=== PATIENT | female | born 1960 | race Caucasian/White ===

== ENCOUNTER 2018-12-18 04:13 | Observation (INO) | payer BC ==
[~2018-12-18] VITALS: Ht 154.9 cm; Wt 123.7 kg
--- NOTE | ~2018-12-18 | OP ---
PATIENT NAME: DEVON LONGO MEDICAL RECORD: [id number] :58 LOCATION:[facility]- ADMISSION DATE:12/18/18 SURGEON: BEN AHN MD DATE OF OPERATION: 12/18/2018 PROCEDURE: Left heart catheterization, selective coronary angiography, right femoral artery approach as well as right radial approach due to inability. We initially started with radial; however, due to inability to engage left main, we were forced to go to femoral. FINDINGS: Left ventriculography was not performed. Left heart pressures; however, showed normal left heart pressures, there was no pullback across the aortic valve, LVEDP of 20. CORONARY ANATOMY: LEFT MAIN: Left main is free of disease. LAD: Has a long diffuse proximal stenosis about 80%. This extends to pass the first diagonal. CIRCUMFLEX: Minimal luminal irregularities. RIGHT CORONARY ARTERY: Again minimal luminal irregularities. IMPRESSION: Single-vessel disease involving left anterior descending. PLAN: Intervention momentarily. DESCRIPTION OF PROCEDURE: We engaged the right femoral artery with a JL4 guiding catheter easily. This was followed by 300 cm Whisper wire, which was placed across the tightly occluded diffusely diseased LAD down this portion of this vessel. Stent deployed was a 3.0 x 30 mm Jose drug-eluting stent up to 14 atmospheres for 45 seconds. Final angiography shows excellent resolution of diffuse 80% stenosis, no significant residual. NINO flow was 3 throughout the procedure. Integrilin and heparin were used during the case. Plavix was loaded in the lab. TRANSINT:[id number] Voice Confirmation ID: [id number] DOCUMENT ID: [id number] BEN AHN MD CC: [id number] DICTATION DATE: 12/18/18 1518 SUPERINTENDENT HOUSE: 12/18/18 1530 ADM IN [place] [id number] [place] [address]
--- NOTE | ~2018-12-18 | HEMODYNAMI ---
PATIENT:DEVON LONGO MEDICAL RECORD: [id number] : 58 LOCATION:[facility]# [id number] ADMISSION DATE: 12/18/18 Generatedon:12/18/201815:22 Patient name: DEVON LONGO Patient #: [id number] SSN: D OB: 1960 Date of study: 12/18/2018 Page: Of Hemodynamic Procedure Report Patient Data Patient Demographics Procedure consent was obtained First Name: DEVON Gender: Female Last Name: QING : 1960 Patient #: [id number] Age: 58 year(s) Race: Unknown Additional ID: [id number] Contact details Address: [address] [place] [address] rd State: [place] City: [place] Zip code: [address] Past Medical History Allergies Allergen Reaction Date Comments Reported Other allergy 12/18/2018 N Admission Admission Data Admission Date: 12/18/2018 Admission Time: 6:29 Room #: D.E12 Height (in.): 60.63 BSA: 2.13 (m2) Height (cm.): 154 BMI: 51.44 (kg/m2) Weight (lbs.): 268.97 Weight (kg.): 122 Lab Results Lab Result Date: 12/18/2018 Lab Result Time: 0:00 Biochemistry Name Units Result Min Max BUN mg/dl 13 --(--*-)-- 7 18 Creatinine mg/dl 1 --(--*-)-- 0.6 1.3 CBC Name Units Result Min Max Hemoglobin g/dl 13.4 -*(----)-- 13.5 17.5 Procedure Procedure Types Cath Procedure Diagnostic Procedure LHC Coronaries only PCI Procedure Coronary Stent Coronary Stent Initial Procedure Description Procedure Date Procedure Date: 12/18/2018 Procedure Start Time: 14:38 Procedure End Time: 15:13 Procedure Staff Name Function Víctor Mitchell MD Performing Physician Jenni Soto RN Nurse Ysabel Pennington RT Scrub Joel Chaudhry RT Monitor Procedure Data Cath Procedure Fluoroscopy Diagnostic fluoroscopy Total fluoroscopy Time: time: 10.2 min 10.2 min Diagnostic fluoroscopy Total fluoroscopy dose: dose: 2115 mGy 2115 mGy Contrast Material Contrast Material Type Amount (ml) Isovue 300 139 Entry Location Entry Primary Successful Side Size Upsize Upsize Entry Closure Richards ccessful Closure Location (Fr) 1 (Fr) 2 (Fr) Remarks Device Remarks Radial Right 6 Fr Mechanical artery Short Compression Femoral Right 6 Fr Exoseal artery Short Estimated blood loss: 10 ml Diagnostic catheters Device Type Used For End Catheter Placement DIAGNOSTIC Ribera 110cm 5 Procedure Fr catheter ([id number]) DIAGNOSTIC Pigtail 5Fr Procedure catheter ([id number]) Procedure Complications No complications Procedure Medications Medication Administration Route Dosage Oxygen etCO2 Nasal cannula 2 l/min Lidocaine 2% added to field 20 Heparin Flush Bag added to field 2 bags (1000units/500ml NS) 0.9% NaCl I.V. 100 ml/hr Radial Cocktail added to field 1 syringe (Verapomil 2mg/Nitro 400mcg/Heparin 1500units) Versed I.V. 2 mg Fentanyl I.V. 50 mcg Versed I.V. 1 mg Fentanyl I.V. 50 mcg Versed I.V. 1 mg Fentanyl I.V. 50 mcg Heparin Bolus I.V. 5000 units Integrilin (Bolus 11.3 ml 2mg/ml) Atropine I.V. 1 mg Versed I.V. 1 mg Plavix P.O. 600 mg Hemodynamics Rest BSA: 2.13 (m2) O2 Consumption: Estimated: 202.65 (ml/min) O2 Consumption indexed : Estimated:95.14 (ml/min/m) Heart Rate: 70 (bpm) Pressure Samples Time Site Value (mmHg) Purpose Heart Use Rate(bpm) 14:41 AO 155/94(120) Snapshot 67 Snapshots Pre Cath Intra NCS Post Cath Vital Signs Time Heart Resp SPO2 etCO2 NIBP (mmHg) Rhythm Pain Sedation Rate (ipm) (%) (mmHg) Status Level (bpm) 14:29:19 69 16 89 17.8 151/82(118) NSR 0 (11) 10(A) , No pain 14:33:31 68 15 93 12.6 152/88(103) NSR 0 (11) 10(A) , No pain 14:37:47 68 14 93 32.6 164/76(105) NSR 0 (11) 9(A) , No pain 14:42:07 70 18 95 32.6 143/78(112) NSR 0 (11) 9(A) , No pain 14:46:19 71 15 95 23.7 156/82(110) NSR 0 (11) 9(A) , No pain 14:51:22 51 15 96 26.6 137/67(91) NSR 0 (11) 9(A) , No pain 14:55:32 87 25 95 32.6 121/67(85) NSR 0 (11) 9(A) , No pain 14:59:38 84 41 92 28.9 131/73(101) NSR 0 (11) 9(A) , No pain 15:03:48 77 14 90 31.1 121/72(104) NSR 0 (11) 10(A) , No pain 15:07:52 74 16 92 31.1 131/76(93) NSR 0 (11) 10(A) , No pain 15:12:01 74 15 93 33.3 137/72(94) NSR 0 (11) 10(A) , No pain Medications Time Medication Route Dose Verified Delivered Reason Not es Effectiveness by by 14:26:51 Oxygen etCO2 2 l/min Víctor Arteaga used for Nasal St Jagdish Soto RN procedure cannula 14:27:00 Lidocaine 2% added 20ml Víctor Renee for local to vial [facility] anesthetic field MD ARROYO 14:27:07 Heparin Flush added 2 bags Víctor Arteaga used for Bag to St Jagdish Soto RN procedure (1000units/500ml field ARROYO NS) 14:27:36 0.9% NaCl I.V. 100 Víctor Arteaga Per physician ml/hr St Jagdish Soto RN, MD 14:29:28 Versed I.V. 2 mg Víctor Francisie for sedation St Jagdish Soto RN, MD 14:29:34 Fentanyl I.V. 50 mcg Víctor Francisie for sedation St Jagdish Soto RN, MD 14:33:26 Versed I.V. 1 mg Víctor Francisie for sedation St Jagdish Soto RN, MD 14:33:31 Fentanyl I.V. 50 mcg Víctor Arteaga for sedation St Jagdish Soto RN, MD 14:39:18 Radial Cocktail added 1 Víctor Víctor for (Verapomil to syringe St Jagdish Mitchell vasodilation 2mg/Nitro field MD ARROYO 400mcg/Heparin 1500units) 14:40:58 Versed I.V. 1 mg Víctor Buffie for sedation St Jagdish Soto RN, MD 14:47:32 Heparin Bolus I.V. 5000 Víctor Buffie for lela ified units St Jagdish Soto RN anticoagulation with dr MD leiva 14:48:40 Integrilin 11.3 ml Víctor Buffie Per physician was jessica (Bolus 2mg/ml) St Jagdish Soto RN 8.7 ml MD of vial 14:51:29 Atropine I.V. 1 mg Víctor Arteaga For bradycardia St Jagdish Soto RN, MD 14:54:44 Fentanyl I.V. 50 mcg Víctor Francisie for sedation St Jagdish Soto RN, MD 14:54:51 Versed I.V. 1 mg Víctor Francisie for sedation St Jagdish Soto RN, MD 15:15:43 Plavix P.O. 600 mg Víctor Buffie for St Jagdish Soto RN antiplatelet therapy Procedure Log Time Note 13:50:02 Jenni Soto RN sent for patient. Start room use. 14:00:30 Patient Height : 60.63 inches 14:00:34 Patient Weight : 268.97 lbs 14:01:12 Lab Result : Hemoglobin 13.4 g/dl 14:01:12 Lab Result : Creatinine 1 mg/dl 14:01:12 Lab Result : BUN 13 mg/dl 14:02:01 Diagnostic Cath status Elective 14:02:04 Time tracking: Regular hours (M-F 7:00 - 5:00) 14:02:10 Plan of Care:Hemodynamics will remain stable., Cardiac rhythm will remain stable., Comfort level will be maintained., Respiratory function will remain adequate., Patient/ family verbilizes understanding of procedure., Procedure tolerated without complication., Recovers from procedure without complications.. 14:02:16 Patient received from ED to CCL 2 Alert and oriented. Tansferred to table in Supine position. 14:15:20 Warm blankets applied, and marcelo hugger turned on for patient comfort. 14:15:22 Correct patient and procedure confirmed by team. 14:15:23 Signed procedure consent form obtained from patient. 14:15:25 ECG and BP/O2 sat monitors applied to patient. 14:15:34 H&P Date Dictated: 12/18/2018 Emergent; H&P N/A. 14:15:36 Pre-procedure instructions explained to patient. 14:15:40 Family in waiting room. 14:15:42 Patient NPO since Breakfast. 14:16:07 Patient allergic to Other allergyPCN 14:26:23 Was the patient premedicated? Yes 14:26:24 Is patient on blood thinner?No 14:26:26 Patient diabetic? No. 14:26:31 Snore? Unknown 14:26:32 Sleep apnea? No 14:26:46 Dentures? Yes tight 14::51 Oxygen 2 l/min etCO2 Nasal cannula was administered by Jenni Soto RN; used for procedure; 14:: Patient pain scale 0/10 ?. 14:26:57 IV patent on arrival in right forearm with 0.9% NaCl at [facility]. 14:27:00 Lidocaine 2% 20ml vial added to field was administered by Víctor Mitchell MD; for local anesthetic; 14:27:00 Lab results completed and on chart. 14:27:04 Right Radial & Right Groin area was prepped with chlora-prep and draped in sterile fashion 14:27: Alarms reviewed by R. N. 14:27: Sharps counted by scrub and verified by R.N. 14:27: Heparin Flush Bag (1000units/500ml NS) 2 bags added to field was administered by Jenni Soto RN; used for procedure; 14:: Physician paged 14:: Physician arrived 14::09 --------ALL STOP TIME OUT------ 14:: Final Timeout: patient, procedure, and site verified with staff and physician. All members of the team are in agreement. 14:27:11 Right Radial & Right Groin site verified by team. 14:27:15 Maximum allowable Isovue 300 dose 300ml. Physician notified. (300ml for normal creatinines. For patients with creatinine of 1.7 or higher multiply weight(kg) x 5 divided by creatinine.) 14:27:21 Fire Safety Assessment: A--An alcohol-based skin anteseptic being used preoperatively., C--Open oxygen or nitrous oxide is being used., D--An ESU, laser, or fiber-optic light is being used. 14:27:26 Physical assessment completed. ASA score P 2 - A patient with mild systemic disease as per Víctor Mitchell MD. 14::31 Sedation plan: IV Moderate Sedation Medication:Versed, Fentanyl 14::34 Use device set Radial Dx or PCI 14::36 0.9% NaCl 100 ml/hr I.V. was administered by Jenni Soto RN; Per physician; 14:27:36 ACIST Syringe (80330) opened to sterile field. 14::36 Medline Cath Pack ([id number]) opened to sterile field. 14:27:36 Bag Decanter (2002S) opened to sterile field. 14:27:38 ACIST Hand Control (54983) opened to sterile field. 14:27:38 ACIST Manifold (12676) opened to sterile field. 14:27:40 MBrace Wrist Support ([id number]) opened to sterile field. 14:27:42 SHEATH 6FR Slender (52-5339) opened to sterile field. 14:28:08 Vital chart was started 14:29:28 Versed 2 mg I.V. was administered by Jenni Soto RN; for sedation; 14::34 Fentanyl 50 mcg I.V. was administered by Jenni Soto RN; for sedation; 14::44 Patt Castillo RT(R) was relieved by Joel Chaudhry RT(R) as monitoring person 14:31:44 Correct patient and procedure confirmed by team. 14:32:03 Rhythm: sinus rhythm 14:32:05 Full Disclosure recording started 14:32:27 DIAGNOSTIC WIRE .035 260cm J wire (891156) opened to sterile field. 14:33:26 Versed 1 mg I.V. was administered by Jenni Soto RN; for sedation; 14:33:31 Fentanyl 50 mcg I.V. was administered by Jenni Soto RN; for sedation; 14:37:54 Procedure started. 14:38:01 Local anesthetic to right radial artery with Lidocaine 2% by Víctor Mitchell MD.INITIAL ACCESS ONLY 14:39:18 Radial Cocktail (Verapomil 2mg/Nitro 400mcg/Heparin 1500units) 1 syringe added to field was administered by Víctor Mitchell MD; for vasodilation; 14:39:51 A 6 Fr Short sheath was inserted into the Right Radial artery 14:40:01 A DIAGNOSTIC Ribera 110cm 5 Fr catheter (585495) was advanced over the wire and used for Procedure. 14:40:51 Baseline sample Acquired. 14:40:58 Versed 1 mg I.V. was administered by Jenni Soto RN; for sedation; 14:41:11 RCA angiography performed. 14:42:08 LCA angiography performed. 14:43:26 Catheter exchanged over wire. 14:44:07 Use device set JIMY PCI 14:44:34 A DIAGNOSTIC Pigtail 5Fr catheter (145791P) was advanced over the wire and used for Procedure. 14:45:18 GUIDE 6FR XBLAD 3.5 catheter ([id number]) opened to sterile field. 14:45:21 INFLATOR Merit BasixCompak (SE2719) opened to sterile field. 14:45:37 WHISPER 300cm guide wire ([id number]) opened to sterile field. 14:47:32 Heparin Bolus 5000 units I.V. was administered by Jenni Soto RN; for anticoagulation; verified with dr leiva 14:47:40 Unable to cross valve. 14:47:46 Catheter exchanged over wire. 14:48:14 6 Fr XBLAD 3.5 guide catheter was inserted over the wire 14:48:40 Integrilin (Bolus 2mg/ml) 11.3 ml was administered by Jenni Soto RN; Per physician; wasted 8.7 ml of vial 14:51:29 Atropine 1 mg I.V. was administered by Jenni Soto RN; For bradycardia; 14:52:02 Guide Catheter removed. unable to cannulate vessel. 14:52:04 GUIDE 6FR XBLAD 4.0 catheter ([id number]) opened to sterile field. 14:52:33 6 Fr XBLAD 4 guide catheter was inserted over the wire 14:54:44 Fentanyl 50 mcg I.V. was administered by Jenin Soto RN; for sedation; 14:54:50 Guide catheter removed. 14:54:51 Versed 1 mg I.V. was administered by Jenni Soto RN; for sedation; 14:55:12 PATIENT WILL NOT KEEP ARM STILL. WILL PROCEED FEMORAL 14:56:10 TR BAND Standard ([id number]) opened to sterile field. 14:56:48 Local anesthetic to right femoral artery with Lidocaine 2% by Víctor Mitchell MD.ADDITIONAL ACCESS 14:57:08 A 6 Fr Short sheath was inserted into the Right Femoral artery 14:57:59 GUIDE 6FR JL 4.0 SH catheter ([id number]) opened to sterile field. 14:58:10 6 Fr JL4 SH guide catheter was inserted over the wire 14:59:13 SHEATH 6FR [place] (DLQ078) opened to sterile field. 15:00:03 Whisper wire advanced. 15:02:15 Wire advanced across lesion. 15:05:10 Place stent Inflation Number: 1 A DANIEL OTW 3.0 x 34 stent ([id number]) was prepped and advanced across the Prox LAD. The stent was deployed at 14 DEJAN for 0:30 (min:sec). 15:05:33 Stent catheter was removed intact over wire. 15:05:34 Wire removed. 15:05:34 Guide catheter removed. 15:06:22 EXOSEAL 6Fr (EX600) opened to sterile field. 15:06:42 Sheath removed intact; hemostasis achieved with Exoseal to the Right Femoral artery. 15:06:58 Procedure ended.(Physican Out) 15:07:55 Fluoroscopy time 10.20 minutes. 15:08:01 Fluoroscopy dose: 2115 mGy 15:08:01 Flurop Dose total: 2115 15:08:23 Contrast amount:Isovue 300 139ml. 15:08:24 Sharps counted by scrub and verified by R.N. 15:08:43 Sheath removed intact; hemostasis achieved with Mechanical Compression to the Right Radial artery. 15:08:47 TR band inflated with 12cc of air. 15:09:02 Insertion/operative site no bleeding no hematoma. 15:09:06 Post-op/insertion site Right Femoral artery dressed using a 4 x 4 and Tegaderm. 15:09:07 Post Procedure Pulses reassessed and unchanged 15:09:13 Post-procedure physical assessment completed. ASA score P 2 - A patient with mild systemic disease as per Víctor Mitchell MD. 15:09:15 Post procedure rhythm: unchanged. 15:09:18 Estimated blood loss: 10 ml 15:10:49 Post procedure instruction explained to patient.Patient verbalizes understanding. 15:10:49 Patient needs reinforcement of post procedure teaching. 15:11:04 Procedure type changed to Cath procedure, Diagnostic procedure, LHC, Coronaries only, PCI procedure, Coronary Stent, Coronary Stent Initial 15:12:58 Procedure and supply charges have been captured, reviewed, submitted and are correct. 15:13:01 Procedure Complication : No complications 15:13:06 Vital chart was stopped 15:13:06 See physician's report for complete and final results. 15:13:08 Report given to Pre/Post Procedure Room. 15:13:12 Patient transfered to Pre/Post Procedure Room with Stretcher. 15:13:14 Procedure ended. 15:13:14 Full Disclosure recording stopped 15:15:43 Plavix 600 mg P.O. was administered by Jenni Soto RN; for antiplatelet therapy; 15:21:56 End room use (Document Last) Intervention Summary Intervention Notes Time ActionType Lesion and Equipment Action# Pressure Duration Attributes Used 15:05:[address] stent Prox LAD DANIEL OTW 3.0 1 14 00:30 x 34 stent ([id number]) Device Usage Item Name Manufacture Quantity Catalog Hospital Part Current Mini mal Lot# / Number Charge Number Stock Stock Serial# Code ACIST Syringe Acist 1 89400 799426 374317 286902 20 (07555) Medical Systems Inc Medline Cath Medline 1 [id number] 498107 34201 224965 5 Pack ([id number]) Bag Decanter Microtek 1 2001S 338664 63451 389595 5 (2001S) Medical Inc. ACIST Hand Acist 1 26180 644783 779070 347537 5 Control Medical (46499) Systems Inc ACIST Acist 1 70091 074167 067110 504399 5 Manifold Medical (79697) Systems Inc MBrace Wrist Advanced 1 140-0250-00 602993 65432 811413 5 Support Vascular (870604241) Dynamics SHEATH 6FR Terumo 1 [id number] 670904 080246 236567 5 Slender (80-1060) DIAGNOSTIC St Jun 1 069944 143876 339173 288906 30 WIRE .035 260cm J wire (423215) DIAGNOSTIC Terumo 1 50-0905 313891 572194 226277 5 Ribera 110cm 5 Fr catheter (406660) DIAGNOSTIC Cardinal 1 [id number] 875855 604064 932745 5 Pigtail 5Fr Health catheter (446363N) GUIDE 6FR Cardinal 1 40060352 594524 430361 271124 10 XBLAD 3.5 Health catheter (03772726) INFLATOR Merit 1 [id number] 856512 362228 727012 15 [facility] BasixCompak (OD4536) WHISPER 300cm Reaves 1 [id number] 209134 606492 533988 5 guide wire Vascular (8390620UH) GUIDE 6FR Cardinal 1 [id number] 060054 774120 891202 3 XBLAD 4.0 Health catheter (80749369) TR BAND Terumo 1 [id number] 241863 777540 583285 40 Standard ([id number]) GUIDE 6FR JL Medtronic 1 [id number] 851083 67826 869314 1 4.0 SH catheter ([id number]) SHEATH 6FR Terumo 1 KMW388 755174 534723 183174 40 [place] (VKG205) DANIEL OTW 3.0 Medtronic 1 [id number] 683509 2706284 826053 5 [id number] x 34 stent ([id number]) EXOSEAL 6Fr Cardinal 1 EX600 427449 549329 866491 10 (EX600) Health Signature Audit [place] Stage Time Signature Unsigned Intra-Procedure 12/18/2018 Joel Chaudhry 3:22:19 PM RT(R) Signatures Monitor : Joel Chaudhry RT Signature : Date : Time : [address] [address]
[2018-12-18] MEDS ORDERED: LISINOPRIL40 MG PO (04:21)
[2018-12-18] MEDS ORDERED: SYNTHROID100 MCG PO (04:21)
[2018-12-18] MEDS ORDERED: LIPITOR20 MG (04:21)
[2018-12-18] MEDS ORDERED: ALDACTONE25 MG PO (04:22)
[2018-12-18] MEDS ORDERED: CLARITIN 10 MG10 MG PO (04:22)
[2018-12-18] MEDS ORDERED: BYSTOLIC10 MG PO (04:22)
[2018-12-18] MEDS ORDERED: FLONASE (04:22)
[2018-12-18 04:47] VITALS: BP 195/110
[2018-12-18 05:15] VITALS: BP 197/107
[2018-12-18 05:27] LABS: APTT 29.8 SECONDS (22.8-39.4); INR 0.93 (0.85-1.17)
[2018-12-18 05:30] LABS: BASOPHILS 0.1 % (0-2); EOSINOPHILS 1.2 % (0-7); HEMATOCRIT 41.5 % (36.0-48.0); HEMOGLOBIN 13.4 g/dL (12-16); IMMATURE GRANULOCYTES 0.2 % (0-5); LYMPHOCYTES 26.2 % (15-50); MCH 30.7 pg (26.0-34.0); MCHC 32.3 g/dL (31.0-37.0); MCV 95.2 fL (80.0-100.0); MEAN PLATELET VOLUME 10.9 fL (7.4-10.4); MONOCYTES 5.3 % (2-11); PLATELET COUNT 224 10x3/uL (130-400); RBC 4.36 10x6/uL (4.00-5.40); RDW 13.6 % (11.5-14.5); WBC 9.2 10x3/uL (4.8-10.8)
[2018-12-18 05:42] LABS: ALBUMIN 3.2 g/dL (3.4-5.0); ALKALINE PHOSPHATASE 123 U/L (46-116); ALT (SGPT) 27 U/L (10-68); BILIRUBIN - TOTAL 0.27 mg/dL (0.2-1.3); CALC OSMOLALITY 289 mosm/kg (275-300); CARBON DIOXIDE 27.4 mmol/L (21.0-32.0); CHLORIDE - SERUM 109 mmol/L (98-107); GLUCOSE 119 mg/dL (74-106); POTASSIUM - SERUM 3.6 mmol/L (3.5-5.1); PROTEIN - SERUM 7.4 g/dL (6.4-8.2); SODIUM 145 mmol/L (136-145); UREA NITROGEN 13 mg/dL (7-18); eGFR NON AFRICAN AMERICAN 60 mL/min (90-120)
[2018-12-18 05:53] LABS: CKMB 2.3 U/L (0.0-3.6); CREATINE KINASE 163 UL (21-215); MAGNESIUM - SERUM 1.8 mg/dL (1.8-2.4); TROPONIN-I 0.042 ng/mL (0.000-0.060)
--- NOTE | 2018-12-18 07:15 | NUR ---
HAND-OFF REPORT RECEIVED FROM CRISTOFER SOTO.
--- NOTE | 2018-12-18 07:17 | NUR ---
PT RETURNED FROM ORDERED CT AT THIS TIME.
--- NOTE | 2018-12-18 08:09 | NUR ---
PT ALERT AND ORIENTED, OBSERVED SITTING IN HIGH THOMAS'S. NO SIGNS OF DISRESS. PT AWARE OF ORDERED NPO STATUS. FAMILY AT THE BEDSIDE AND CALL LIGHT IN REACH. PT AWARE SHE IS BEING ADMITTED TO [facility] [place], [place], AWAITING BED ASSIGNMENT. RESPIRATIONS EVEN AND UNLABORED. PT DENIES ANY PAIN AT THIS ITME. WILL CONTINUE TO MONITOR.
[2018-12-18 08:12] VITALS: BP 175/85
[2018-12-18 09:01] VITALS: BP 171/88
--- NOTE | 2018-12-18 09:04 | NUR ---
PER CARDIOLOGY MRI SPECIALIST, JIMBO, PT MAY HAVE AHA BREAKFAST TRAY, MEAL TRAY ORDERED AND PT AWARE.
[2018-12-18 11:45] LABS: CKMB 2.3 U/L (0.0-3.6); CREATINE KINASE 162 UL (21-215); TROPONIN-I 0.031 ng/mL (0.000-0.060)
--- NOTE | 2018-12-18 13:10 | NUR ---
PREOP COMPLETE AT THIS TIME. INFORMED BUFFY WITH RECONCILIATION COORDINATOR THAT PT WAS PREOPED AND THAT PT STATES, "CAN'T TAKE BENADRYL IT CAUSES HEART TO RACE."
[2018-12-18 13:13] VITALS: BP 183/90
--- NOTE | 2018-12-18 13:43 | NUR ---
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 PT DENIES ANY NEEDS. CALL LIGHT IN REACH AND FAMILY AT THE BEDSIDE.
--- NOTE | 2018-12-18 15:55 | NUR ---
PATIENT AWAKE, DRINKING APPLE JUICE AND EATING CRACKERS. VSS ON ROOM AIR. RIGHT TR BAND IN PLACE, NO S/S OF BLEEDING OR HEMATOMA. RIGHT GROIN DRESSING IS CDI, NO S/S OF BLEEDING OR HEMATOMA. FAMILY PRESENT AT BEDSIDE.
--- NOTE | 2018-12-18 16:25 | NUR ---
PATIENT EXPERIENCED EPISODE OF VOMITING, IV ZOFRAN GIVEN ORDERED. VSS ON CM. FAMILY AT BEDSIDE. RIGHT GROIN DRESSING IS CDI, NO S/S OF BLEEDING OR HEMATOMA. RIGHT TR BAND IN PLACE, NO S/S OF BLEEDING OR HEMATOMA. NO C/O PAIN, NUMBNESS, OR TINGLING. REPORT CALLED TO [facility] [place] ON [employer], ALL QUESTIONS ANSWERED.
--- NOTE | 2018-12-18 16:40 | NUR ---
PATIENT TRANSPORTED VIA STRETCHER TO ROOM 2121, ALL BELONGINGS AND FAMILY WITH PATIENT. RIGHT GROIN DRESSING IS CDI, NO S/S OF BLEEDING OR HEMATOMA. RIGHT TR BAND IN PLACE, NO S/S OF BLEEDING OR HEMATOMA.
--- NOTE | 2018-12-18 17:00 | NUR ---
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 FAMILY AT BEDSIDE. VSS AND BEING MONITERED PER POST CATH PROCEDURE GUIDELINES. PT HAS A DRSG TO HER R.GROIN CDI NO S/S OF BLEEDING OR HEMATOMA NOTED. PT ALSO HAS A R.WRIST TR BAND IN PLACE WITH 15CC OF AIR. NO BLEEDING NOTED, WILL REMOVE AIR AVAILABLE AND CTM. PERIPHERAL PULSES INTACT. WILL COMPLETE ADMISSION WORKUP. CL IN REACH, BED IN LOWEST, SIDE RAILS X2. WILL CPOC.
[2018-12-18 18:32] VITALS: BP 115/80; Ht 154.9 cm; Wt 123.7 kg
--- NOTE | 2018-12-18 18:32 | NUR ---
PT NEEDING TO USE BR AND 4HR LAY NOT COMPLETE. ASSISTED PT ONTO BEDPAN AND PT VOIDED WITHOUT ANY ISSUES. R.GROIN DRSG CDI NO S/S OF BLEEDING NOTED. R.WRIST TR BAND CDI NO BLEEDING NOTED. REMOVED 5CC OF AIR AND WILL CONTINUE TO REMOVE AIR AVAILABLE. VSS AND BEING MONITERED PER POST PROCEDURE PROTOCOL. PT DENIES ANY CURRENT PAIN OR NEEDS AT THIS TIME. CL IN REACH, BED IN LOWEST, SIDE RAILS X2. WILL CTM.
--- NOTE | 2018-12-18 19:15 | NUR ---
IN WITH NURSE GRANADOS FOR BEDSIDE REPORT, PT UP TO RESTROOM 4 HR LAY COMPLETE. RIGHT GROIN CDI NO S/S OF HEMATOMA. RIGHT WRIST TR BAND NO S/S OF HEMATOMA. PT DENIES ANY NEEDS. NO S/S OF DISTRESS. BEDLOW AND CALL LIGHT IN REACH. NAME AND DATE PLACED ON BOARD. PT WILL CALL FOR ASSIST WHEN NEEDED. WILL CPOC
--- NOTE | 2018-12-18 19:15 | NUR ---
4 HR LAY NOW COMPLETED AND PT NEEDING TO URINATE. R.GROIN DRSG REMAINS CDI NO S/S OF BLEEDING OR HEMATOMA NOTED. REMOVED 5CC OF AIR FROM R.WRIST TR BAND AND STILL NO S/S OF BLEEDING. VSS THROUGHOUT POST PROCEDURE MONITERING. ASSISTED PT TO BR AND SHE VOIDED AND NOW IS BACK IN BED RESTING. PT IS HUNGRY AND AT BEDSIDE TO GET HER SOMETHING. BEDSIDE SHIFT REPORTING COMPLETED AND NO FURTHER NEEDS AT THIS TIME.
--- NOTE | 2018-12-18 19:45 | NUR ---
5CC OF AIR REMOVED FROM TR BAND. NO S/S OF HEMATOMA OR BLEEDING. RIGHT GROIN CDI NO S/S OF HEMATOMA OR BLEEDING. PT IS AAO, DENIES ANY NEEDS. NO S/S OF DISTRESS. PT BEDLOW AND CALL LIGHT IN REACH. PT DECLINES LIPITOR FROM HERE, TOOK HOME MED LIPITOR. PT WILL CALL FOR ASSIST WHEN NEEDED.W ILL CPOC
--- NOTE | 2018-12-18 20:30 | NUR ---
TR BAND RIGHT WRIST AIR REMOVED. CLEANED AREA AND PLACED GAUZE AND TEGADERM. PLACED TR BAND WITHOUT AIR FOR SUPPORT OF WRIST THROUGHOUT NIGHT. NO S/S OF HEMATOMA OR BLEEDING. RIGHT GROIN CDI. NO S/S OF BLEEDING OR HEMATOMA. PT DENIES ANY NEEDS. WILL CPOC
--- NOTE | 2018-12-18 23:07 | NUR ---
PT READY FOR BED. RIGHT WRIST NO BLEEDING OR HEMATOMA. DRSG CDI. PULSES +2 RIGHT GROIN DRSG CDI. NO HEMATOMA OR BLEEDING. PT HAS NO S/S OF DISTRESS. DENIES ANY NEEDS. WILL CPOC
--- NOTE | 2018-12-19 04:25 | NUR ---
PT ASLEEP. NO S/S OF DISTRESS. NO CHANGES. SPOUSE AT BEDSIDE. CALL LIGHT IN REACH WILL CPOC
[2018-12-19 05:00] VITALS: BP 144/85
[2018-12-19 05:26] LABS: BASOPHILS 0.1 % (0-2); EOSINOPHILS 0.6 % (0-7); HEMATOCRIT 36.5 % (36.0-48.0); HEMOGLOBIN 11.7 g/dL (12-16); IMMATURE GRANULOCYTES 0.2 % (0-5); LYMPHOCYTES 25.8 % (15-50); MCH 30.5 pg (26.0-34.0); MCHC 32.1 g/dL (31.0-37.0); MCV 95.1 fL (80.0-100.0); MEAN PLATELET VOLUME 10.8 fL (7.4-10.4); MONOCYTES 6.8 % (2-11); NEUTROPHILS 66.5 % (40-80); PLATELET COUNT 234 10x3/uL (130-400); RBC 3.84 10x6/uL (4.00-5.40); RDW 13.7 % (11.5-14.5); WBC 9.7 10x3/uL (4.8-10.8)
[2018-12-19 05:38] LABS: CALCIUM 8.7 mg/dL (8.5-10.1); CARBON DIOXIDE 30.7 mmol/L (21.0-32.0); CHOL - HDL RATIO 4.6 ratio (2.3-4.1); CREATININE - SERUM 0.9 mg/dL (0.6-1.3); POTASSIUM - SERUM 3.7 mmol/L (3.5-5.1)
--- NOTE | 2018-12-19 05:48 | NUR ---
PT RESTING IN BED. NO S/S OF DISTRESS. BEDLOW AND CALL LIGHT IN REACH. PT WILL CALL FOR ASSIST WHEN NEEDED. WILL CPOC
[2018-12-19] MEDS ORDERED: LIPITOR20 MG PO (08:56)
[2018-12-19 10:02] VITALS: BP 160/77
[2018-12-19] MEDS ORDERED: PLAVIX75 MG PO (10:12)
[2018-12-19] MEDS ORDERED: LISINOPRIL20 MG PO (10:12)
--- NOTE | 2018-12-19 11:40 | NUR ---
DISCHARGE TEACHING PROVIDED AND PAPERS SIGNED. PT VERBALIZED UNDERSTANDING AND DENIES ANY QUESTIONS OR CONCERNS. D/C PTS R.FA PIV WITH CATHETER TIP FULLY INTACT. D/C TELEMETRY AND RETURNED TO [facility]. PT IS GETTING DRESSED NOW AND AT BEDSIDE FOR TRANSPORTATION. WILL CTM.
--- NOTE | 2018-12-20 10:00 | MORECARE ---
CASE MANAGEMENT DISCHARGE SUMMARY PATIENT: DEVON LONGO UNIT: [id number] ADM DATE: 12/18/18 AGE: 58 : 58 SEX: F ROOM/BED: D.2121 AUTHOR: JOSE CASTRO PHYSICIAN: REFERRING PHYSICIAN: GABRIELE TRIPP MD DATE OF SERVICE: 12/20/18 Discharge Plan Patient Name: DEVON LONGO [facility] : 1960 Planned Disposition: Home Anticipated Discharge Date: 12/19/18 Discharge Date: 12/19/2018 Expected LOS: 1 Initial Reviewer: [email or web address] Initial Review Date: 12/20/2018 Generated: 12/20/18 10:59 am Patient Name: DEVON LONGO Page [id number] at 1000 All edits/amendments must be made on the electronic document DICTATION DATE: 12/20/1859 PAN WASHER: PAULA 12/20/1859 RPT#: [id number] DC DATE:12/19/18 STATUS: DIS IN [facility] [address] [place] [address] END OF REPORT
== END 2018-12-19 12:00 | disposition home or self-care (01) ==
LOC: D.ER 04:13 → D.EDHOLD 06:29 → D.M2 06:29 → D.EDHOLD 06:29 → OBSVTIME 06:29 → D.CLR 15:40 → D.M2 17:18
PROVIDERS: Family Medicine; ADMIT Internal Medicine Nephrology; ATTEND Internal Medicine Nephrology
DX: I25.110 Atherosclerotic heart disease of native coronary artery with unstable angina pectoris (principal); I16.0 Hypertensive urgency; E78.5 Hyperlipidemia, unspecified; E03.9 Hypothyroidism, unspecified